=== PATIENT | female | born 1985 | race Caucasian/White ===

== ENCOUNTER 2023-09-04 09:59 | Outpatient (CLI) | payer OTHER, SELFPAY ==
[2023-09-04 10:23] LABS: Hematocrit 43.1 % (37.0-47.0); Hemoglobin 14.7 g/dL (12.0-15.0); Mean Corpuscular HGB Conc 34.1 g/dl (32-36); Mean Corpuscular Hemoglobin 33.9 pg (26-34); Mean Corpuscular Volume 99.3 fl (80-100); Mean Platelet Volume 9.9 fl (7.4-10.4); Platelet Count Result 308 k/mm3 (150-375); Red Blood Count 4.34 M/mm3 (4.2-5.4); Red Cell Distribution Width 12.2 % (11.5-14.5); White Blood Count 5.1 K/mm3 (4.5-10.0)
== END 2023-09-04 10:00 | disposition home or self-care (01) ==
PROVIDERS: PCP Internal Medicine Gastroenterology; Visit Provider Obstetrics & Gynecology
DX: Z01.818 Encounter for other preprocedural examination (principal); N93.9 Abnormal uterine and vaginal bleeding, unspecified
CPT/HCPCS: 36415; 85027

== ENCOUNTER 2023-09-12 00:25 | Day surgery (SDC) | payer OTHER, SELFPAY ==
[2023-09-02 15:58] VITALS: BMI 22.1
--- NOTE | 2023-09-02 16:03 | SUR.PREOP ---
Report to the Outpatient Waiting Room, entrance under the green pavilion located off [facility], at time 0730 on date 09/12/23. Planned Procedure Time: _0930 _. Time changes happen often and if your time is changed the preop area will call you the afternoon before. - You and your visitor will be asked to self-screen and do not enter if you have any COVID symptoms. - A mask is optional within the hospital at this time. Patients may have clear liquids (water, carbonated beverages, clear teas, apple juice) until 3 hours prior to surgery with a maximum of 20 ounces. - No food from midnight until time of surgery before 0630am - Infants may have breast milk until 4 hours before surgery, formula 6 hours prior to surgery. - Children will be allowed to drink immediately following surgery. If applicable, please bring a bottle or sippy cup to assist with drinking. Juice, water, soda, and popsicles are readily available. For infants on formula, please bring formula the day of surgery. Pacifiers are allowed. Take the following medications with a SIP of water the morning of surgery: fluoxetine DO NOT STOP ANY OF YOUR OTHER PRESCRIPTION MEDICATIONS PRIOR TO SURGERY ?EXCEPT THE FOLLOWING Medications to discontinue per physician n/a Date to take last dose Please no make-up, nail italian, hairspray, perfume, deodorant, or body powder the day of surgery. No jewelry (including any body piercings) or valuables the day of surgery, leave them at home. Please take a shower or bath the night before, or the morning of, surgery with an antibacterial soap. Wear comfortable, loose fitting clothing. Children are encouraged to wear pajamas. - Jewelry must be removed prior to entering the operating room. Rings and piercings that are not removed may be cut off. - The hospital will not accept responsibility for valuables. - Please leave all valuables, including medications, at home the day of surgery. If you are going home after surgery, a licensed light truck driver must drive you home. - NO public transportation without another adult if you receive anesthesia. - We recommend that an adult stay with you for 24 hours following discharge. - We also recommend that you do not drive, make important decision, drink alcoholic beverages, or take any drugs that were not prescribed by your health care provider for at least 24 hours after your discharge time. For Pediatric surgeries, we recommend two adults accompany the child home. Follow any additional instructions given to you from your surgeon. If you or anyone in your household have experienced Covid symptoms in the past week, please notify your surgeon or the nurse liaison at the phone number below for possible testing. Telephone instructions given to __patient____and asked if any additional questions and then verbalized understanding. Patient advised to call surgeon office or pre surgery nurse liaison [phone] if any additional questions.
--- NOTE | 2023-09-09 09:12 | PM.IMHP ---
H&P: HPI History of Present Illness Date/Time: 09/09/23 09:12 38-year-old female presents for evaluation and treatment of heavy vaginal bleeding. She is currently on progesterone only control pills which have helped with her endometriosis, though she does continue to have heavy bleeding and her cycles are lasting 5-7 days with very heavy bleeding and clotting. Has had a tubal ligation in the past, and is interested endometrial ablation. She did have an ultrasound which showed thickened endometrial cavity with likely endocervical polyp as well. Chief Complaint: Menometrorrhagia Review of Systems Review of Systems: All systems reviewed & are unremarkable except as noted in HPI and below PMFSH Past Medical History Medical History Abnormal Pap smear of cervix 05/23/2011 (ASC-US) 02/06/2016 ascus +hpv; 07/09/2016 wnl + hpv 03/11/2017 Hgsil +hpv Anxiety Asthma Ectopic 09/21/14 Encounter for IUD insertion 11/12/07 Mirena insertion 05/28/12 Mirena removal and reinsertion Encounter for screening examination for sexually transmitted disease Endometriosis Hemorrhoids HSV-1 (herpes simplex virus 1) infection Human papilloma virus Ovarian cyst Surgical History Surgical History H/O LEEP 04/18/17 HGSIL IRENE II--involved ectocervical upper & lower margins History of bilateral salpingectomy 10/20/15 desired sterilization History of colposcopy with cervical biopsy 03/19/16 benign 03/18/17 benign--LEEP scheduled History of laparoscopy 09/21/14 lscope lt salpingectomy/peritoneal bx--ectopic , peritoneal endometriosis Social History Social History Smoking packs per day: 1 Smoking cigarettes per day: 20.0 Years smoked: 23 Smoking pack-years: 23.00 Smoking status: Current every day smoker Tobacco type: cigarettes Second hand tobacco smoke exposure: Yes Alcohol intake: current Drinks per week: 1 Alcohol use details: occasionally Substance use: current Substance use type: marijuana Other substance usage details: daily Living arrangements: with family Additional living arrangements comments: Occupation/Education: unemployed Gender identity (if verbalized by the patient): Female Sexual Orientation (if Verbalized by the Patient): Straight or Heterosexual Spiritual care concerns: No Meds Home Medications and Allergies Home Medications Medication Instructions Recorded Confirmed Type fluoxetine 20 mg tablet 20 mg PO DAILY 07/24/22 09/02/23 History trazodone 50 mg tablet 50 mg PO QHS PRN Sleep 07/24/22 09/02/23 History fluoxetine 40 mg capsule 40 mg PO DAILY 08/07/23 09/02/23 History Allergies Allergy/AdvReac Type Severity Reaction Status Date / Time No Known Allergies Allergy Verified 08/07/23 13:36 Exam Const: General: cooperative and healthy appearing Resp: Effort & Inspection: normal respiratory effort Auscultation: clear to auscultation bilaterally Cardio: Rate: regular rate Rhythm: regular rhythm GI: Inspection: normal to inspection GI Palp: No abdominal tenderness Auscultation: normal bowel sounds : External Female Exam: normal external appearance Speculum Exam - Vagina: normal appearance of the vagina Speculum Exam - Cervix: normal appearance of the cervix Bimanual exam- vagina & uterus: normal bimanual exam Bimanual Exam- Adnexa, other: normal adnexae Assessment and Plan Assessment and plan (1) Menorrhagia: Code(s): N92.0 - Excessive and frequent menstruation with regular cycle Status: Acute Assessment and Plan: Proceed with hysteroscopy with uterine curettings, possible polypectomy if present.
[2023-09-12 08:15] VITALS: BP 122/82; PULSE 77; RESP 14; TEMP 36.3; O2SAT 100
[2023-09-12] MEDS: LACTATED RINGERS 1,000 ML 30 ML IV CONT (08:15)
--- NOTE | 2023-09-12 08:21 | WPDHPUPDATE1 ---
History and Physical Update Update Date/Time: 09/12/23 08:21 Procedure today: 1. hysteroscopy 2. uterine curretings (polyp if present) 3. endometrial ablation History and Physical has been reviewed, including an updated exam of the patient. There are NO changes in the patient's condition. Risks, benefits, and alternatives have been discussed and questions answered. Patient agrees to proceed with procedure.
--- NOTE | 2023-09-12 08:49 | WPDANESEPPF ---
Anes - Initial Pre Proc Eval Procedure: Operation Date: 09/12/23 09:30 Proposed Procedures p Hysteroscopy Dilation and Curettage with Rocio Endometrial Ablation - Norbert Chadwick MD Date/Time: 09/12/23 08:49 Surgeon: Norbert Chadwick MD Pre Op Diagnosis: abnormal uterine uterine bleeding Patient Data Age: 38 Gender: F Height: 1.78 m Weight: 69.85 kg Allergies Allergy/AdvReac Type Severity Reaction Status Date / Time No Known Allergies Allergy Verified 08/07/23 13:36 Home Medications Medication Instructions Recorded Confirmed Type fluoxetine 20 mg tablet 20 mg PO DAILY 07/24/22 09/02/23 History trazodone 50 mg tablet 50 mg PO QHS PRN Sleep 07/24/22 09/02/23 History fluoxetine 40 mg capsule 40 mg PO DAILY 08/07/23 09/02/23 History Patient hx anesthesia problems: none Family hx anesthesia problems: none Results Review: All pre-operative results and documents have been reviewed as part of the pre-operative evaluation. [facility] Past Medical History Medical History Abnormal Pap smear of cervix 05/23/2011 (ASC-US) 02/06/2016 ascus +hpv; 07/09/2016 wnl + hpv 03/11/2017 Hgsil +hpv Anxiety Asthma Ectopic 09/21/14 Encounter for IUD insertion 11/12/07 Mirena insertion 05/28/12 Mirena removal and reinsertion Encounter for screening examination for sexually transmitted disease Endometriosis Hemorrhoids HSV-1 (herpes simplex virus 1) infection Human papilloma virus Ovarian cyst Surgical History Surgical History H/O LEEP 04/18/17 HGSIL IRENE II--involved ectocervical upper & lower margins History of bilateral salpingectomy 10/20/15 desired sterilization History of colposcopy with cervical biopsy 03/19/16 benign 03/18/17 benign--LEEP scheduled History of laparoscopy 09/21/14 lscope lt salpingectomy/peritoneal bx--ectopic , peritoneal endometriosis Social History Social History Smoking packs per day: 1 Smoking cigarettes per day: 20.0 Years smoked: 23 Smoking pack-years: 23.00 Smoking status: Current every day smoker Tobacco type: cigarettes Second hand tobacco smoke exposure: Yes Alcohol intake: current Drinks per week: 1 Alcohol use details: occasionally Substance use: current Substance use type: marijuana Other substance usage details: daily Living arrangements: with family Additional living arrangements comments: Occupation/Education: unemployed Gender identity (if verbalized by the patient): Female Sexual Orientation (if Verbalized by the Patient): Straight or Heterosexual Spiritual care concerns: No Anes - Eval Final PreProcedure Day of Procedure 09/12/23 08:49 Patient weight: normal Heart: regular rate and rhythm Lungs: clear to auscultation Airway: Mallampati scale class II Neurological: alert and oriented Last oral intake: >/= 8 hours ASA classification: II Emergent: no Anesthetic plan: proceed Anesthesia type and monitoring: general GIVS and standard monitoring Results Review: All pre-operative results and documents have been reviewed as part of the pre-operative evaluation. Informed Consent: The patient's anesthetic plan and its attendant risks and benefits were discussed with the patient/family/POA. Questions were solicited and answers provided to the satisfaction of the patient/family/POA.
[2023-09-12] MEDS: ceFAZolin 2 GM/D5W 50 ML 2 GM/50 ML BAG IVPB (08:50)
[2023-09-12 09:15] VITALS: BP 110/64; PULSE 66; RESP 16; O2SAT 100
--- NOTE | 2023-09-12 09:19 | W.PM.PROC2 ---
Procedure Note - Detailed Date of Procedure 09/12/23 Pre-op Diagnosis abnormal uterine uterine bleeding Post-op Diagnosis Same Procedure Performed 1. Hysteroscopy with uterine curettings 2. Endometrial ablation Surgeon Norbert Chadwick MD Anesthesia MAC Findings Thickened endometrial cavity Description of Procedure Patient prepped and draped in usual manner for this procedure. Cervix was dilated to allow the hysteroscope to be placed which revealed no significant abnormalities. Uterine curettings were obtained without difficulty. Endometrial ablation instrument was placed cavity assessment was performed and instrument was activated. At the end of the cycle hysteroscopic exam revealed good destruction throughout. Patient was then sent to recovery room in stable condition. Estimated Blood Loss 10 Drains No Packing No Pathology Yes Complications No immediate complications Condition Stable Disposition PACU [facility] Billing Surgery - Charge Forward: Surgery Billing
[2023-09-12] MEDS: oxyCODONE HCL (*CRX) 5 MG TAB IR PO (09:44)
[2023-09-12 09:45] VITALS: BP 137/89; PULSE 74; RESP 16
[2023-09-12 10:15] VITALS: BP 132/79; PULSE 67; RESP 16
[2023-09-12] MEDS: KETOROLAC 30 MG/ML VIAL (*BKC) IV PUSH (10:33)
[2023-09-12 10:36] VITALS: BP 136/90; PULSE 62; RESP 16
== END 2023-09-12 10:39 | disposition home or self-care (01) ==
PROVIDERS: PCP Internal Medicine Gastroenterology; Visit Provider Obstetrics & Gynecology
PROC: 0U5B8ZZ Destruction of Endometrium, Via Natural or Artificial Opening Endoscopic (ICD-10-PCS; CPT 58563; principal; 2023-09-12 09:30)
DX: N92.0 Excessive and frequent menstruation with regular cycle (principal); F41.9 Anxiety disorder, unspecified; J45.909 Unspecified asthma, uncomplicated; N80.9 Endometriosis, unspecified; F17.210 Nicotine dependence, cigarettes, uncomplicated; F12.90 Cannabis use, unspecified, uncomplicated; Z98.890 Other specified postprocedural states
CPT/HCPCS: 58563; 88305; A9270; J0690; J1100; J1885; J2250; J2405; J2704; J3010; J7120